=== PATIENT | male | born 1965 | race Caucasian/White ===

== ENCOUNTER 2020-05-21 09:19 | Emergency (ER) | payer SELFPAY ==
[~2020-05-21] VITALS: Ht 180.3 cm; Wt 87.1 kg
== END 2020-05-21 10:41 | disposition home or self-care (01) ==
LOC: ED 09:19
DX: R53.1 Weakness (principal); Z20.828 Contact with and (suspected) exposure to other viral communicable diseases; R53.83 Other fatigue